=== PATIENT | female | born 1945 | race Caucasian/White ===

== ENCOUNTER 2017-05-08 07:49 | Emergency (ER) | payer MEDICARE, OTHER ==
[~2017-05-08] VITALS: Ht 157.5 cm; Wt 56.0 kg
[2017-05-08 07:51] VITALS: BP 144/66; PULSE 70; RESP 16; TEMP 98.1; O2SAT 99
[2017-05-08] MEDS ORDERED: ZOCO80TA PO (08:10)
[2017-05-08] MEDS ORDERED: ACET1TAB17 PO (08:10)
[2017-05-08] MEDS ORDERED: TOPI25 PO (08:10)
[2017-05-08] MEDS ORDERED: ACTO35TA PO (08:10)
[2017-05-08] MEDS ORDERED: ASPI-516 CHEW (08:10)
[2017-05-08] MEDS ORDERED: TETANUS/DIPHTHERIA TOXOID ADULT 0.5 ML VIAL IM ONE (08:15)
--- NOTE | 2017-05-08 08:16 | PD ---
HPI Chief Complaint: Fall Time Seen by Provider: 07:57 Travel History International Travel<30 days: No Contact w/Intl Traveler<30days: No Traveled to known affect area: No History of Present Illness HPI 71-year-old female states she tripped and fell on the edge of a curb and landed on her jaw sustaining a cut. She states she did not black out. She states she also has pain to both of her knees. She denies other specific complaints. She states she takes a baby aspirin in terms of blood thinner medication. She states her last tetanus was in 2000. She states she is down here for the [place]. Quality is no loss of consciousness. Severity is is from standing. PFSH Past Medical History Arthritis: Yes High Cholesterol: Yes Headaches: Yes Musculoskeletal: Yes Tetanus Vaccination: > 5 Years Influenza Vaccination: Yes Past Surgical History Hysterectomy: Yes Tonsillectomy: Yes Social History Alcohol Use: No Tobacco Use: No Substance Use: No Allergies-Medications (Allergen,Severity, Reaction): Coded Allergies: No Known Allergies (Unverified , 05/08/17) Reported Meds & Prescriptions Reported Meds & Active Scripts Active Reported Prodrin (Vcecqdnxjpuhv-Wlbexkpl-Yvkwodbvefgqw) 65-20-325 Mg Tab 1 Tab PO DIRECTED PRN Aspirin 81 Mg Chew 81 Mg CHEW DAILY Zocor (Simvastatin) 80 Mg Tab 80 Mg PO DAILY Topamax (Topiramate) 25 Mg Tab 25 Mg PO BID Actonel (Risedronate) 35 Mg Tab 35 Mg PO Q7D Review of Systems Except as stated in HPI: all other systems reviewed are Neg Physical Exam Narrative General: 71 y/o patient in no apparent distress Skin: trauma noted to chin area with approximately 1-1/2 cm simple laceration, abrasions to bilateral knees Eyes: Pupils equal, eomi ENT: no septal hematoma NECK: no pain with palpation in midline, nexus criteria negative Cardiovascular: Regular rate and rhythm Respiratory: Normal respiratory effort noted, clear to auscultation bilaterally Abdomen: soft, nontender, nondistended Back: No step-offs, midline spine nontender with palpation Extremities: No pain with palpation and range of motion of all joints including specifically bilateral wrist, hands, knees, no lacerations over, neurovascularly intact Neuro: awake, alert, sensation and motor grossly intact Data Data Last Documented VS Vital Signs Date Time Temp Pulse Resp B/P (MAP) Pulse Ox O2 Delivery O2 Flow Rate FiO2 05/08/17 08:07 (92) 05/08/17 08:04 Room Air 05/08/17 07:51 98.1 70 16 99 d/w nurse bp documented is MAP, repeat is normal and will be documented with a systolic of [address] Facial Bones W/O Iv Cont (05/08/17 ) Tetanus/Diphtheria Tox Adult (Tetanus/Di (05/08/17 08:15) Lidocai-Epi 2%-1:100,000 Inj (Xylocaine- (05/08/17 08:45) Lidocai-Epi 2%-1:100,000 Inj (Xylocaine- (05/08/17 08:45) Ed Discharge Order (05/08/17 09:27) [facility] Medical Decision Making Medical Screen Exam Complete: Yes Emergency Medical Condition: Yes Interpretation(s) Last [address] 05/08/17 0000 Signed Impressions: Service Date/Time: Monday, May 08, 2017 08:11 - CONCLUSION: Normal examination. Howard Calderón Jr., MD Differential Diagnosis Fracture, laceration, sprain Narrative Course Will check CT face and update tetanus, laceration will need repair. Patient agrees to hold on other imaging given no joint pain and if develop she will return for imaging ct no acute, midlevel assisted with laceration repair, steady gait, Patient denies any new complaints, all questions answered. Patient knows that follow up is incumbent on them and to return to the emergency room immediately if new or worsening symptoms develop. Patient given strict return precautions, vitals reviewed and are normal, agrees to further workup as an outpatient. Diagnosis Primary Impression: Chin laceration Qualified Codes: S01.81XA - Laceration without foreign body of other part of head, initial encounter Additional Impressions: Fall Qualified Codes: W19.XXXA - Unspecified fall, initial encounter Knee abrasion Qualified Codes: S80.219A - Abrasion, unspecified knee, initial encounter Abrasion of hand, right Qualified Codes: S60.511A - Abrasion of right hand, initial encounter Patient Instructions: General Instructions Additional Instructions: return as needed, have sutures removed in 5 days, tylenol as needed for pain Med/Other Pt SpecificInfo: No Change to Meds Disposition: 01 DISCHARGE HOME Condition: Stable SarahdDaniela May MD May 08, 2017 08:16
[2017-05-08] MEDS ORDERED: LIDOCAINE 2%/EPINEPHrine 1:100,000 30ML MDV INFIL ONE (08:45)
[2017-05-08] MEDS ORDERED: LIDOCAINE 2%/EPINEPHrine 1:100,000 20ML MDV INFIL ONE (08:45)
--- NOTE | 2017-05-08 08:55 | RADRPT ---
EXAM DATE/TIME: 05/08/2017 08:11 [facility] COMPARISON: No previous studies available for comparison. INDICATIONS : Trauma, fall. Pain and laceration on tip of chin. RADIATION DOSE: 29.83 CTDIvol (mGy) MEDICAL HISTORY : None SURGICAL HISTORY : Hysterectomy. ENCOUNTER: Initial ACUITY: 1 day PAIN SCORE: 6/10 LOCATION: facial TECHNIQUE: Volumetric scanning of the facial bones was performed. Using automated exposure control and adjustme nt of the mA and/or kV according to patient size, radiation dose was kept as low as reasonably achiev able to obtain optimal diagnostic quality images. DICOM format image data is available electronicall y for review and comparison. FINDINGS: ORBITS: The orbital and infraorbital osseous structures are intact. The retroconal structures have a normal configuration. No radiopaque foreign bodies are seen. NASAL BONE: The nasal bone and maxillary spine are intact ZYGOMATIC ARCHES: Symmetric without evidence of fracture. SINUSES: The maxillary, ethmoid and frontal sinuses are intact. No air-fluid levels seen. NASAL CAVITY: The nasal septum is intact and midline. The lacrimal ducts are intact. SOFT TISSUES: No radiopaque foreign bodies seen. No soft-tissue swelling is seen. INTRACRANIAL: No intracranial air seen. CRIBIFORM PLATE: Grossly intact. CONCLUSION: Normal examination. Howard Calderón Jr., MD on May 08, 2017 at 8:50 Board Certified Radiologist. This report was verified electronically.
--- NOTE | 2017-05-08 09:26 | PD ---
Physical Exam Narrative I was asked by my attending physician Dr. Garsia to perform laceration repair patient's Chin lack. Data Data Last Documented VS Vital Signs Date Time Temp Pulse Resp B/P (MAP) Pulse Ox O2 Delivery O2 Flow Rate FiO2 05/08/17 08:07 (92) 05/08/17 08:04 Room Air 05/08/17 07:51 98.1 [address] Facial Bones W/O Iv Cont (05/08/17 ) Tetanus/Diphtheria Tox Adult (Tetanus/Di (05/08/17 08:15) Lidocai-Epi 2%-1:100,000 Inj (Xylocaine- (05/08/17 08:45) Lidocai-Epi 2%-1:100,000 Inj (Xylocaine- (05/08/17 08:45) MDM Supervised Visit with EUGENE: Yes Procedures Procedure Narrative LACERATION LOCATION: Chin LENGTH: 1 cm NUMBER OF STITCHES/LYNNE: 3 REPAIR: The area of the laceration was prepped with Betadine and sterilely draped. The laceration was infiltrated with 1% lidocaine with epi. The wound was copiously irrigated and explored without evidence of foreign body, tendon injury or neurovascular injury. The wound was closed using 5-0 Ethilon. This was a single layer repair. A sterile dressing was applied. The patient was advised to keep the dressing clean and dry. Patient tolerated the procedure well. Ira Burleson May 08, 2017 09:26
[2017-05-08 09:38] VITALS: BP 133/66
== END 2017-05-08 09:39 | disposition home or self-care (01) ==
LOC: PHED 07:49
DX: S01.81XA Laceration without foreign body of other part of head, initial encounter (principal); S60.511A Abrasion of right hand, initial encounter; S80.212A Abrasion, left knee, initial encounter; S80.211A Abrasion, right knee, initial encounter; E78.00 Pure hypercholesterolemia, unspecified; M19.90 Unspecified osteoarthritis, unspecified site; W10.1XXA Fall (on)(from) sidewalk curb, initial encounter; Z23 Encounter for immunization; Z79.82 Long term (current) use of aspirin
CPT/HCPCS: 12011; 70486; 90471; 90714